=== PATIENT | male | born 1990 | race Caucasian/White ===

== ENCOUNTER 2016-11-16 23:13 | Emergency (ER) | payer SELFPAY ==
[~2016-11-16] VITALS: Ht 190.5 cm; Wt 108.9 kg
[~2016-11-16 23:13] MED LIST: ALBUTEROL0.09 MG/A2 INH; BACTRIM DS 8001 TA1 PO; HYDROCODONE BIT1 T11 PO; KEFLEX500 MG PO; MEDROL DOSEPAK4 MG PO; VENTOLIN H0.09 MG/AC INH; ZITHROMAX250 MG PO
[2016-11-17 00:30] VITALS: BP 138/57
== END 2016-11-17 01:27 | disposition home or self-care (01) ==
LOC: ED 23:13
DX: T40.1X1A Poisoning by heroin, accidental (unintentional), initial encounter (principal); R40.1 Stupor; Y92.9 Unspecified place or not applicable

== ENCOUNTER 2017-06-16 19:50 | Emergency (ER) | payer OTHER ==
[~2017-06-16] VITALS: Wt 95.3 kg
[2017-06-16 19:54] VITALS: BP 151/90
[2017-06-16] MEDS ORDERED: CEPHALEXIN500 M1 PO (20:08)
[2017-06-16] MEDS ORDERED: SEPTDS PO (20:08)
== END 2017-06-16 20:10 | disposition home or self-care (01) ==
LOC: ED 19:50
DX: L02.511 Cutaneous abscess of right hand (principal); F10.20 Alcohol dependence, uncomplicated

== ENCOUNTER 2017-08-28 01:38 | Emergency (ER) | payer OTHER ==
[~2017-08-28] VITALS: Ht 190.5 cm; Wt 95.3 kg
[~2017-08-28 01:38] MED LIST changes: +CEPHALEXIN500 M1 PO; +SEPTDS PO
[2017-08-28 01:43] VITALS: BP 144/80
[2017-08-28] MEDS ORDERED: SUBOXONE 8 MG-1 EACH SL (01:44)
== END 2017-08-28 02:17 | disposition home or self-care (01) ==
LOC: ED 01:38
DX: J45.901 Unspecified asthma with (acute) exacerbation (principal)

== ENCOUNTER 2018-12-19 01:31 | Emergency (ER) | payer OTHER ==
[~2018-12-19] VITALS: Ht 190.5 cm; Wt 95.3 kg
[~2018-12-19 01:31] MED LIST changes: +SUBOXONE 8 MG-1 EACH SL
[2018-12-19 01:32] VITALS: BP 129/71
== END 2018-12-19 02:31 | disposition home or self-care (01) ==
LOC: ED 01:31
DX: J45.901 Unspecified asthma with (acute) exacerbation (principal)